=== PATIENT | male | born 1940 | race Caucasian/White ===

== ENCOUNTER → 2018-03-01 14:06 | Outpatient (CLI) | payer MEDICARE, OTHER, SELFPAY ==
--- NOTE | 2018-03-01 | LES_PTH ---
PATIENT: JUAN CALI LOC: [facility] U#:[id number] AGE/SX: 85/M ROOM: RE03/01/[address]: Dr. Alberto Montiel MD : 1940 BED: DIS: SPEC #: [id number] RECD: 03/01/18 14:04 STATUS: CHE [place] #: [id number] TANISHA: 03/01/18 00:[address]: Alberto Montiel DEPT: SURGICAL PATHOLOGY RECD BY: Manjit Frausto ENTERED: 03/01/18 14:10 SP TYPE: Lesion OTHR DR: No Primary Care Phys Tissues: Skin of eyelid, NOS Procedures: Surgery Specimen Level IV HEADER OPERATION: Left lower lid lesion PRE-OP DIAGNOSIS: Possible papilloma TISSUE SUBMITTED: Left lower eyelid lesion MICROSCOPIC DIAGNOSIS Left lower eyelid lesion, biopsy: Benign fibroepithelial polyp. AM:valarie 03/04/18 MICROSCOPIC DESCRIPTION Slides are reviewed. GROSS DESCRIPTION Received in fixative is one container labeled with the patient's name and designated LLL. The specimen consists of a fragment of angelo-white soft tissue measuring 0.2 x 0.2 x 0.1 cm. The specimen is totally submitted in one cassette. / SJ:valarie 03/01/18 TC:5 CPT: 93163
== END ==
PROVIDERS: Visit Provider Ophthalmology
DX: H02.9 Unspecified disorder of eyelid (principal)
CPT/HCPCS: 88305